=== PATIENT | female | born 1925 | race African-American/Black ===

== ENCOUNTER → 2016-09-24 | Outpatient (CLI) | payer MEDICARE, BC ==
[~2016-09-24] MED LIST: AMLO10TA80 PO; ASPI-864 PO; LISI10TA5 PO
== END | disposition home or self-care (01) ==
LOC: MAMMO 10:17
PROVIDERS: ATTEND Internal Medicine Gastroenterology
DX: Z12.31 Encounter for screening mammogram for malignant neoplasm of breast (principal)
CPT/HCPCS: G0202